=== PATIENT | female | born 1965 | race American Indian/Alaskan Native ===

== ENCOUNTER 2020-05-05 10:26 | Emergency (ER) | payer OTHER ==
[2020-05-05 10:39] VITALS: BP 147/77
[2020-05-05] MEDS ORDERED: KETOROLAC 30 MG/1 ML INJ IV ONE (12:08)
[2020-05-05] MEDS ORDERED: HYDROmorphone 1 MG/1 ML INJ IV ONE (12:08)
[2020-05-05] MEDS ORDERED: SODIUM CHLORIDE 0.9% 1000 ML 1,000 ML IV ONE (12:08)
[2020-05-05] MEDS: ONDANSETRON 4 MG/2 ML INJ IV ONE ×2 (12:25→12:28)
--- NOTE | 2020-05-05 12:44 | Emergency Department Report ---
ED General Adult HPI - General Chief complaint: Abdominal Pain Stated complaint: ABD PAIN Time Seen by Provider: 05/05/20 11:32 Source: patient Mode of arrival: Ambulatory Limitations: No Limitations - History of Present Illness Initial comments: Patient is a 54-year-old female presents emergency room with complaints of right flank pain that radiates to her right lower quadrant that began this morning around 9 AM. She states that it feels like a sharp stabbing pain. She denies ever having this in the past. she denies any dysuria, urinary frequency, dark urine, odor to the urine, vomiting, diarrhea, fever. She has a past medical history of ovarian cyst. No allergies to medications. States that she had a partial hysterectomy. Severity scale (0 -10): 10 - Related Data Previous Rx's Medication Instructions Recorded Last Taken Type Naproxen [EC-Naprosyn] 500 mg PO BID PRN #14 tablet. 05/05/20 Unknown Rx traMADoL [Ultram 50 MG tab] 50 mg PO Q6HR PRN #7 tablet 05/05/20 Unknown Rx Allergies Allergy/AdvReac Type Severity Reaction Status Date / Time No Known Allergies Allergy Unverified 05/05/20 11:35 ED Review of Systems ROS: Stated complaint: ABD PAIN Other details as noted in HPI Comment: All other systems reviewed and negative ED Past Medical Hx - Past Medical History Previous Medical History?: No - Surgical History Past Surgical History?: Yes Additional Surgical History: HYSTERECTOMY - Medications Home Medications: Home Medications Medication Instructions Recorded Confirmed Last Taken Type Naproxen [EC-Naprosyn] 500 mg PO BID PRN #14 tablet. 05/05/20 Unknown Rx traMADoL [Ultram 50 MG tab] 50 mg PO Q6HR PRN #7 tablet 05/05/20 Unknown Rx ED Physical Exam - General Limitations: No Limitations General appearance: alert, in no apparent distress - Head Head exam: Present: atraumatic, normocephalic - Eye Eye exam: Present: normal appearance - ENT ENT exam: Present: mucous membranes moist - Respiratory Respiratory exam: Present: normal lung sounds bilaterally. Absent: respiratory distress, wheezes, rales, rhonchi, stridor, chest wall tenderness, accessory muscle use, decreased breath sounds, prolonged expiratory - Cardiovascular Cardiovascular Exam: Present: regular rate, normal rhythm, normal heart sounds. Absent: systolic murmur, diastolic murmur, rubs, gallop - GI/Abdominal GI/Abdominal exam: Present: soft, tenderness (RLQ), normal bowel sounds. Absent: distended, guarding, rebound, rigid - Back Exam Back exam: Present: CVA tenderness (R). Absent: CVA tenderness (L) - Neurological Exam Neurological exam: Present: alert, oriented X3 - Psychiatric Psychiatric exam: Present: normal affect, normal mood - Skin Skin exam: Present: warm, dry, intact ED Course Vital Signs 05/05/20 10:35 Temperature 97.9 F Pulse Rate 69 Respiratory 18 Rate Blood Pressure 147/77 [Right] O2 Sat by Pulse 100 Oximetry ED Medical Decision Making - Lab Data Result diagrams: 05/05/20 12:56 05/05/20 12:56 Lab Results 05/05/20 05/05/20 05/05/20 Range/Units 12:56 12:56 15:25 WBC 9.8 (4.5-11.0) K/mm3 RBC 4.22 (3.65-5.03) M/mm3 Hgb 13.2 (10.1-14.3) gm/dl Hct 38.8 (30.3-42.9) % MCV 92 (79-97) fl MCH 31 (28-32) pg MCHC 34 (30-34) % RDW 13.4 (13.2-15.2) % Plt Count 246 (140-440) K/mm3 Lymph % (Auto) 14.0 (13.4-35.0) % [place] % (Auto) 5.3 (0.0-7.3) % Eos % (Auto) 0.4 (0.0-4.3) % Baso % (Auto) 0.5 (0.0-1.8) % Lymph # (Auto) 1.4 (1.2-5.4) K/mm3 [place] # (Auto) 0.5 (0.0-0.8) K/mm3 Eos # (Auto) 0.0 (0.0-0.4) K/mm3 Baso # (Auto) 0.0 (0.0-0.1) K/mm3 Seg Neutrophils % 79.8 H (40.0-70.0) % Seg Neutrophils # 7.8 H (1.8-7.7) K/mm3 Sodium 140 (137-145) mmol/L Potassium 3.8 (3.6-5.0) mmol/L Chloride 102.3 (98-107) mmol/L Carbon Dioxide 24 (22-30) mmol/L Anion Gap 18 mmol/L BUN 12 (7-17) mg/dL Creatinine 0.8 (0.6-1.2) mg/dL Estimated GFR > 60 ml/min BUN/Creatinine Ratio 15 % Glucose 92 (65-100) mg/dL Calcium 9.4 (8.4-10.2) mg/dL Total Bilirubin 0.50 (0.1-1.2) mg/dL AST 20 (5-40) units/L ALT 8 (7-56) units/L Alkaline Phosphatase 60 (35-129) units/L Total Protein 7.4 (6.3-8.2) g/dL Albumin 4.0 (3.9-5) g/dL Albumin/Globulin Ratio 1.2 % Lipase 38 (13-60) units/L Urine Color Yellow (Yellow) Urine Turbidity Clear (Clear) Urine pH 8.0 H (5.0-7.0) Ur Specific [place] 1.016 (1.003-1.030) Urine Protein <15 mg/dl (Negative) mg/dL Urine Glucose (UA) Neg (Negative) mg/dL Urine Ketones Tr (Negative) mg/dL Urine Blood Neg (Negative) Urine Nitrite Neg (Negative) Urine Bilirubin Neg (Negative) Urine Urobilinogen < 2.0 (<2.0) mg/dL Ur Leukocyte Esterase Neg (Negative) Urine WBC (Auto) 4.0 (0.0-6.0) /HPF Urine RBC (Auto) 2.0 (0.0-6.0) /HPF U Epithel Cells (Auto) 1.0 (0-13.0) /HPF Urine Mucus Few /HPF - Radiology Data Radiology results: report reviewed CT ABDOMEN AND PELVIS WITHOUT CONTRAST INDICATION / CLINICAL INFORMATION: right flank radiates to RLQ, nausea. TECHNIQUE: Axial CT images were obtained through the abdomen and pelvis without IV contrast. All CT scans at this location are performed using CT dose reduction for ALARA by means of automated exposure control. COMPARISON: None available. FINDINGS: LOWER CHEST: No significant abnormality. LIVER: No significant abnormality. GALLBLADDER: No significant abnormality. BILE DUCTS: No significant abnormality. PANCREAS: No significant abnormality. SPLEEN: No significant abnormality. ADRENALS: No significant abnormality. RIGHT KIDNEY / URETER: No significant abnormality. LEFT KIDNEY / URETER: No significant abnormality. STOMACH / SMALL BOWEL: No significant abnormality. COLON: No significant abnormality. APPENDIX: Not seen. PERITONEUM: Trace free fluid is noted along the pelvis. No free air. No fluid collection. LYMPH NODES: No significant adenopathy. AORTA / ARTERIES: No significant abnormality. IVC / VEINS: No significant abnormality. URINARY BLADDER: No significant abnormality. REPRODUCTIVE ORGANS: Prior hysterectomy. No pelvic mass. ADDITIONAL FINDINGS: Multiple pelvic phleboliths are seen. SKELETAL SYSTEM: No acute abnormality. There is mild lumbar spondylosis with mild degenerative changes of the SI joints. IMPRESSION: 1. No acute abnormality. 2. Nonspecific trace free fluid along the pelvis. 3. Additional findings as above. Signer Name: Justin Trent MD Signed: 05/05/2020 1:09 PM Workstation Name: [id number] Transcribed By: MN Dictated By: Justin Trent MD Electronically Authenticated By: Justin Trent MD Signed Date/Time: 05/05/20 1309 DD/ 1304 TD/TT: CT OF THE ABDOMEN AND PELVIS WITH INTRAVENOUS CONTRAST INDICATION / CLINICAL INFORMATION: Right lower quadrant and right flank pain. TECHNIQUE: The patient received 100 cc Omnipaque [address] scans at this location are performed using CT dose reduction for ALARA by means of automated exposure control. COMPARISON: CT of the abdomen and pelvis without contrast earlier today. FINDINGS: ABDOMEN: The liver, spleen, gallbladder, bile ducts, pancreas, adrenal glands, kidneys and bowel demonstrate no acute abnormality. No adenopathy is seen. There is minimal right basilar subsegmental atelectasis. PELVIS: There is a mild amount of free fluid in the cul-de-sac. There is a 2 cm simple appearing cyst in the right ovary. The left adnexa is unremarkable. The uterus is surgically absent. The distal ureters and urinary bladder are normal. A normal appendix is present and there is no evidence of diverticulitis. I do not identify a hernia. No acute osseous abnormality is seen. IMPRESSION: 1. 2 cm right ovarian cyst and associated free fluid in the cul-de-sac are probably physiologic findings. 2. No CT evidence of acute appendicitis or other cause for right-sided abdominal pain is seen. Signer Name: Tone Murray MD Signed: 05/05/2020 5:27 PM Workstation Name: [id number] Transcribed By: RT Dictated By: Tone Murray MD Electronically Authenticated By: Tone Murray MD Signed Date/Time: 05/05/201726 DD/ 19 TD/TT: - Medical Decision Making Patient is a 54-year-old female presents emergency room with complaints of right flank pain that radiates to her right lower quadrant that began this morning around 9 AM. She states that it feels like a sharp stabbing pain. She denies ever having this in the past. she denies any dysuria, urinary frequency, dark urine, odor to the urine, vomiting, diarrhea, fever. She has a past medical history of ovarian cyst. No allergies to medications. States that she had a partial hysterectomy. vitals are normal. on exam: right CVAT and RLQ abd ttp. labs are normal. UA is WNL. CT abd pelvis without contrast: 1. No acute abnormality. 2. Nonspecific trace free fluid along the pelvis. 3. Additional fin dings as above. Patient given pain medication but continues to have pain. Will order a contrasted study to rule out appendicitis or other intra-abdominal pathology. CT abd pelvis with contrast: 1. 2 cm right ovarian cyst and associated free fluid in the cul-de-sac are probably physiologic findings. 2. No CT evidence of acute appendicitis or other cause for right-sided abdominal pain is seen. Patient given another dose of pain medication and symptoms improved. Discussed all results with patient and answered questions. She states that she did have pain like this previously when she had ovarian cyst in the past. Patient given prescription for naproxen and tramadol. Patient will be referred to primary care and [facility]. Advised patient Please take medication as prescribed. Do not drive or operate machinery while taking severe pain medication. Follow-up with your primary care doctor. Follow-up with [facility]. Return to emergency room for any new or worsening symptoms. - Differential Diagnosis Nephrolithiasis, pyelonephritis, UTI, appendicitis, colitis, ovarian cyst Critical care attestation.: If time is entered above; I have spent that time in minutes in the direct care of this critically ill patient, excluding procedure time. ED Disposition Clinical Impression: Right flank pain Abdominal pain Qualifiers: Abdominal location: right lower quadrant Qualified Code(s): R10.31 - Right lower quadrant pain Ovarian cyst Qualifiers: Laterality: right Qualified Code(s): N83.201 - Unspecified ovarian cyst, right side Disposition: TO HOME OR SELFCARE Is pt being admited?: No Does the pt Need Aspirin: No Condition: Stable Instructions: Ovarian Cyst (ED), Abdominal Pain (ED) Additional Instructions: Please take medication as prescribed. Do not drive or operate machinery while taking severe pain medication. Follow-up with your primary care doctor. Follow-up with [facility]. Return to emergency room for any new or worsening symptoms. Prescriptions: Naproxen [EC-Naprosyn] 500 mg PO BID PRN #14 tablet.dr PRN Reason: Pain, Moderate (4-6) traMADoL [Ultram 50 MG tab] 50 mg PO Q6HR PRN #7 tablet PRN Reason: Pain , Severe (7-10) Referrals: PRIMARY MD BONNIE [Primary Care Provider] - 2-3 Days CHRISS MARTINEZ MD [Staff Physician] - 2-3 Days [facility] [Provider Group] - 2-3 Days ALFREDITO BRIDGES MD [Staff Physician] - 2-3 Days Time of Disposition: 18:10 Print Language: BULGARIAN
--- NOTE | 2020-05-05 13:13 | Cat Scan Report ---
CT ABDOMEN AND PELVIS WITHOUT CONTRAST INDICATION / CLINICAL INFORMATION: right flank radiates to RLQ, nausea. TECHNIQUE: Axial CT images were obtained through the abdomen and pelvis without IV contrast. All CT scans at [facility] location are performed using CT dose reduction for ALARA by means of automated exposure control. COMPARISON: None available. FINDINGS: LOWER CHEST: No significant abnormality. LIVER: No significant abnormality. GALLBLADDER: No significant abnormality. BILE DUCTS: No significant abnormality. PANCREAS: No significant abnormality. SPLEEN: No significant abnormality. ADRENALS: No significant abnormality. RIGHT KIDNEY / URETER: No significant abnormality. LEFT KIDNEY / URETER: No significant abnormality. STOMACH / SMALL BOWEL: No significant abnormality. COLON: No significant abnormality. APPENDIX: Not seen. PERITONEUM: Trace free fluid is noted along the pelvis. No free air. No fluid collection. LYMPH NODES: No significant adenopathy. AORTA / ARTERIES: No significant abnormality. IVC / VEINS: No significant abnormality. URINARY BLADDER: No significant abnormality. REPRODUCTIVE ORGANS: Prior hysterectomy. No pelvic mass. ADDITIONAL FINDINGS: Multiple pelvic phleboliths are seen. SKELETAL SYSTEM: No acute abnormality. There is mild lumbar spondylosis with mild degenerative change s of the SI joints. IMPRESSION: 1. No acute abnormality. 2. Nonspecific trace free fluid along the pelvis. 3. Additional findings as above. Signer Name: Justin Trent MD Signed: 05/05/2020 1:09 PM Workstation Name: [id number]
[2020-05-05 13:37] LABS: Basophils % (Auto) 0.5 % (0.0-1.8); Eosinophils % (Auto) 0.4 % (0.0-4.3); Hematocrit 38.8 % (30.3-42.9); Hemoglobin 13.2 gm/dl (10.1-14.3); Lymphocytes # (Auto) 1.4 K/mm3 (1.2-5.4); Mean Corpuscular HGB Conc 34 % (30-34); Mean Corpuscular Volume 92 fl (79-97); Monocytes # (Auto) 0.5 K/mm3 (0.0-0.8); Monocytes % (Auto) 5.3 % (0.0-7.3); Platelet Count 246 K/mm3 (140-440); Red Blood Count 4.22 M/mm3 (3.65-5.03); Red Cell Distribution Width 13.4 % (13.2-15.2)
[2020-05-05 14:14] LABS: BUN/Creatinine Ratio 15
[2020-05-05 14:29] LABS: Alanine Aminotransferase 8 units/L (7-56); Blood Urea Nitrogen 12 mg/dL (7-17); Calcium 9.4 mg/dL (8.4-10.2); Hemolysis Index 12
[2020-05-05 15:46] LABS: Bilirubin,Urine NEG (Negative); Blood,Urine NEG (Negative); Color,Urine Yellow (Yellow); Mucus,Urine FEW /HPF; Protein,Urine <15 mg/dL mg/dL (Negative); Urobilinogen,Urine < 2.0 mg/dL (<2.0)
[2020-05-05] MEDS ORDERED: MORPHINE 4 MG/1 ML INJ IV ONE (16:05)
[2020-05-05] MEDS ORDERED: ONDANSETRON 4 MG/2 ML INJ IV ONE (16:05)
--- NOTE | 2020-05-05 17:31 | Cat Scan Report ---
CT OF THE ABDOMEN AND PELVIS WITH INTRAVENOUS CONTRAST INDICATION / CLINICAL INFORMATION: Right lower quadrant and right flank pain. TECHNIQUE: The patient received 100 cc Omnipaque [address] scans at this location are performed using CT dose reduction for ALARA by means of automated exposure control. COMPARISON: CT of the abdomen and pelvis without contrast earlier today. FINDINGS: ABDOMEN: The liver, spleen, gallbladder, bile ducts, pancreas, adrenal glands, kidneys and bowel demo nstrate no acute abnormality. No adenopathy is seen. There is minimal right basilar subsegmental atel ectasis. PELVIS: There is a mild amount of free fluid in the cul-de-sac. There is a 2 cm simple appearing cyst in the right ovary. The left adnexa is unremarkable. The uterus is surgically absent. The distal ureters and urinary bladder are normal. A normal appendix is present and there is no evide nce of diverticulitis. I do not identify a hernia. No acute osseous abnormality is seen. IMPRESSION: 1. 2 cm right ovarian cyst and associated free fluid in the cul-de-sac are probably physiologic findi ngs. 2. No CT evidence of acute appendicitis or other cause for right-sided abdominal pain is seen. Signer Name: Tone Murray MD Signed: 05/05/2020 5:27 PM Workstation Name: [id number]
== END 2020-05-05 18:48 | disposition home or self-care (01) ==
LOC: ED 10:26
DX: N83.201 Unspecified ovarian cyst, right side (principal); R10.31 Right lower quadrant pain; Z79.899 Other long term (current) drug therapy; Z90.710 Acquired absence of both cervix and uterus
CPT/HCPCS: 36415; 74176; 74177; 80053; 81001; 83690; 85025; 96361; 96374; 96375; 96376; 99284; J1170; J1885; J2270; J2405; J7030; Q9967